=== PATIENT | female | born 1945 | race Caucasian/White ===

== ENCOUNTER 2018-01-02 07:30 | Inpatient (IN) | payer OTHER ==
[~2018-01-02] VITALS: Ht 160 cm; Wt 90.7 kg
[2018-01-02] MEDS ORDERED: CARVEDILOL25 MG PO (12:54)
[2018-01-02] MEDS ORDERED: COZAAR100 MG PO (12:59)
[2018-01-02] MEDS ORDERED: ALDACTONE25 MG PO (12:59)
[2018-01-02] MEDS ORDERED: GLIMEPIRIDE2 MG PO (13:00)
[2018-01-02] MEDS ORDERED: NIFE60TA3 PO (13:00)
[2018-01-02] MEDS ORDERED: PREVACID30 MG PO (13:00)
[2018-01-02] MEDS ORDERED: NAPROXEN500 MG PO (13:01)
[2018-01-02] MEDS ORDERED: CARAFATE1 GM PO (13:01)
[2018-01-02] MEDS ORDERED: PRAVASTATIN SOD40 MG PO (13:01)
[2018-01-02] MEDS ORDERED: ASA81 MG PO (13:01)
[2018-01-02] MEDS ORDERED: LANTUS SOL100 UNIT/1 (13:02)
[2018-01-09] MEDS ORDERED: ELIQUIS2.5 MG PO (17:24)
[2018-01-09] MEDS ORDERED: PERCOCET 5-3251 EACH PO (17:24)
[2018-01-09] MEDS ORDERED: DUI500 PO (17:24)
== END 2018-01-09 18:58 | DRG 470 ==
LOC: SURG 01-07 06:30 → O/R 01-07 06:30 → SURG 01-07 13:16
PROVIDERS: Orthopaedic Surgery
PROC: 0MNP0ZZ Release Left Knee Bursa and Ligament, Open Approach (ICD-10-PCS; 2018-01-07)
PROC: 0SRD0J9 Replacement of Left Knee Joint with Synthetic Substitute, Cemented, Open Approach (ICD-10-PCS; principal; 2018-01-07 13:15)
DX: M17.12 Unilateral primary osteoarthritis, left knee (principal); D62 Acute posthemorrhagic anemia; M81.0 Age-related osteoporosis without current pathological fracture; E66.8 Other obesity; E11.9 Type 2 diabetes mellitus without complications; I10 Essential (primary) hypertension; J45.998 Other asthma

== ENCOUNTER 2018-01-13 19:46 | Inpatient (IN) | payer OTHER ==
[~2018-01-13] VITALS: Ht 160 cm; Wt 90.7 kg
[~2018-01-13 19:46] MED LIST: ALDACTONE25 MG PO; ASA81 MG PO; CARAFATE1 GM PO; CARVEDILOL25 MG PO; COZAAR100 MG PO; DUI500 PO; ELIQUIS2.5 MG PO; GLIMEPIRIDE2 MG PO; LANTUS SOL100 UNIT/1; NAPROXEN500 MG PO; NIFE60TA3 PO; PERCOCET 5-3251 EACH PO; PRAVASTATIN SOD40 MG PO; PREVACID30 MG PO
== END 2018-01-25 17:15 | DRG 206 ==
LOC: ER 19:46 → SEC-K 01-14 10:05 → MEDJ 01-14 10:05
PROC: 4A033R1 Measurement of Arterial Saturation, Peripheral, Percutaneous Approach (ICD-10-PCS; principal; 2018-01-14)
PROC: 3E0F7GC Introduction of Other Therapeutic Substance into Respiratory Tract, Via Natural or Artificial Opening (ICD-10-PCS; 2018-01-14)
PROC: B54DZZZ Ultrasonography of Bilateral Lower Extremity Veins (ICD-10-PCS; 2018-01-15)
PROC: B44HZZZ Ultrasonography of Bilateral Lower Extremity Arteries (ICD-10-PCS; 2018-01-22)
PROC: 30233N1 Transfusion of Nonautologous Red Blood Cells into Peripheral Vein, Percutaneous Approach (ICD-10-PCS; 2018-01-22)
DX: J95.89 Other postprocedural complications and disorders of respiratory system, not elsewhere classified (principal); J98.11 Atelectasis; N17.8 Other acute kidney failure; D62 Acute posthemorrhagic anemia; J45.41 Moderate persistent asthma with (acute) exacerbation; N39.0 Urinary tract infection, site not specified; B37.49 Other urogenital candidiasis; R09.02 Hypoxemia; Z96.652 Presence of left artificial knee joint; N99.0 Postprocedural (acute) (chronic) kidney failure; I10 Essential (primary) hypertension; E66.8 Other obesity; M17.12 Unilateral primary osteoarthritis, left knee; N99.89 Other postprocedural complications and disorders of genitourinary system; B96.5 Pseudomonas (aeruginosa) (mallei) (pseudomallei) as the cause of diseases classified elsewhere; I87.2 Venous insufficiency (chronic) (peripheral); R23.8 Other skin changes; I70.293 Other atherosclerosis of native arteries of extremities, bilateral legs; L03.031 Cellulitis of right toe; E11.51 Type 2 diabetes mellitus with diabetic peripheral angiopathy without gangrene; L89.611 Pressure ulcer of right heel, stage 1; L89.621 Pressure ulcer of left heel, stage 1

== ENCOUNTER 2025-02-25 08:00 | Outpatient (CLI) | payer OTHER ==
[~2025-02-25] VITALS: Ht 157.5 cm; Wt 88.9 kg
[2025-02-25 10:28] LABS: BASO % 0.8 % (0.1-1.2); EOS # 0.26 (0.04-0.54); EOS % 4.9 % (0.7-7.0); LYMPH # 1.80 (1.18-3.74); LYMPH % 33.8 % (19.3-53.1); MEAN PLATELET VOLUME 9.90 fl (9.4-12.4); MONO # 0.44 (0.24-0.82); MONO % 8.3 % (4.7-12.5); NEUT # 2.77 (1.56-6.13); NEUT % 52.0 % (34.0-71.1); RED CELL DISTRIBUTION WIDTH 13.2 % (11.6-14.4)
[2025-02-25 10:32] LABS: URINE APPEARANCE Cloudy; URINE BILIRRUBIN Negative (NEGATIVE); URINE BLOOD Negative; URINE COLOR Yellow; URINE KETONE Negative (NEGATIVE); URINE LEUKOCYTE Negative; URINE NITRATE Negative; URINE PROTEIN Trace (NEGATIVE); URINE UROBILINOGEN 0.2 E.U./dl
[2025-02-25 10:34] LABS: URINE RBC 4.5 uL (0.0-20.8); URINE WBC 26.4 uL (0.0-23.2)
[2025-02-25] MEDS ORDERED: OMEPRAZOLE-BIC1 EAC1 PO (10:43)
[2025-02-25] MEDS ORDERED: FARXIGA10 MG PO (10:43)
[2025-02-25 10:44] VITALS: BP 163/70
[2025-02-25 11:01] LABS: INR 1.03
[2025-02-25 11:10] LABS: URINE GLUCOSE 500 MG/DL (NEGATIVE)
[2025-02-25 11:11] LABS: URINE CAST 1.31 uL (0.0-1.40); URINE EPITHELIAL CELLS > 201.7 uL (0.0-38.8)
[2025-02-25 11:57] LABS: ALT/SGPT 40.0 U/L (12-78); AST/SGOT 52.0 U/L (15-37); BILIRUBIN TOTAL 0.24 mg/dL (0.3-1.2); BUN CREA RATIO 20.0 (7.0-25.0); CHOL HDL RATIO 2.6 (0-5.0); CREATININE SERUM 1.48 mg/dL (0.55-1.02); GFR 34.02; GLOBULINA 4.1 G/DL (2.4-3.5); GLUCOSE FASTING 92.0 mg/dL (65-100); HDL 62.0 mg/dl (40-60); LDL 79.0 mg/dl (0-130); OSMOLALITY SERUM 290.0 MOSM/KG (275-295); VLDL 19.0 (0-39)
== END 2025-02-25 08:30 | disposition home or self-care (01) ==
LOC: RAD 08:00 → SURH 03-09 08:00 → EDSTATUS 03-09 08:00 → SURH 03-09 11:15 → RAD 04-05 14:41
PROVIDERS: ATTEND Orthopaedic Surgery
DX: M17.11 Unilateral primary osteoarthritis, right knee (principal); Z79.01 Long term (current) use of anticoagulants; D64.9 Anemia, unspecified; R10.9 Unspecified abdominal pain; N39.0 Urinary tract infection, site not specified; E78.5 Hyperlipidemia, unspecified; D68.9 Coagulation defect, unspecified; Z03.818 Encounter for observation for suspected exposure to other biological agents ruled out; Z20.828 Contact with and (suspected) exposure to other viral communicable diseases